=== PATIENT | female | born 1935 | race Caucasian/White ===

== ENCOUNTER 2017-11-05 10:10 | Outpatient (CLI) | payer MEDICARE, BC | END 2017-11-05 10:11 | disposition home or self-care (01) | LOC: BICMAMMO 10:10 | PROVIDERS: ATTEND Internal Medicine | DX: Z12.31 Encounter for screening mammogram for malignant neoplasm of breast (principal) | CPT/HCPCS: 77063; 77067 ==

== ENCOUNTER 2018-12-10 08:07 | Outpatient (CLI) | payer MEDICARE, BC ==
--- NOTE | 2018-12-10 09:57 | MRI ---
BRAIN MRI WITH AND WITHOUT CONTRAST: Date: 12/10/18 INDICATION: Headache, 83-year-old female. FINDINGS: Reference made to 12/06/16 exam. FINDINGS: Age-related parenchymal volume loss with compensatory dilatation of the ventricular system is present . There is no acute territorial infarction, mass effect, or midline shift. There is moderate chronic microvascular ischemic disease of the cerebral white matter, as well as pontine gliosis. No enhancing intra-axial mass. Scattered paranasal sinus mucosal thickening is present. Skull base flow-voids are grossly patent. IMPRESSION: 1. No acute intracranial abnormalities. 2. Moderate chronic ischemic disease. POS: [facility]
[2018-12-10] MEDS ORDERED: Gadobenate Dimeglumine 529 MG/1 ML (20ML VIAL) ONE (11:12)
== END 2018-12-10 08:08 | disposition home or self-care (01) ==
LOC: BICMRI 08:07
PROVIDERS: ATTEND Internal Medicine
DX: R51 Headache (principal); M62.838 Other muscle spasm; I67.82 Cerebral ischemia
CPT/HCPCS: 70553; A9577

== ENCOUNTER 2021-07-19 09:25 | Outpatient (CLI) | payer MEDICARE, BC | END 2021-07-19 09:26 | disposition home or self-care (01) | LOC: RAD-FRANK 09:25 | PROVIDERS: ATTEND Nurse Practitioner Family | DX: T14.90XA Injury, unspecified, initial encounter (principal); W19.XXXA Unspecified fall, initial encounter; I51.7 Cardiomegaly | CPT/HCPCS: 71046 ==